=== PATIENT | male | born 1980 | race Caucasian/White ===

== ENCOUNTER 2022-03-09 17:22 | Emergency (ER) | payer SELFPAY | END 2022-03-09 23:27 | disposition home or self-care (01) | LOC: CSHERS 17:22 | DX: T40.411A Poisoning by fentanyl or fentanyl analogs, accidental (unintentional), initial encounter (principal); T40.1X1A Poisoning by heroin, accidental (unintentional), initial encounter; J69.0 Pneumonitis due to inhalation of food and vomit; F17.200 Nicotine dependence, unspecified, uncomplicated | CPT/HCPCS: 71045; 93005 ==

== ENCOUNTER 2022-10-08 22:26 | Emergency (ER) | payer SELFPAY | END 2022-10-09 00:22 | disposition home or self-care (01) | LOC: CSHERS 22:26 | DX: T40.411A Poisoning by fentanyl or fentanyl analogs, accidental (unintentional), initial encounter (principal); F17.210 Nicotine dependence, cigarettes, uncomplicated | CPT/HCPCS: 93005; 99284 ==

== ENCOUNTER 2023-09-21 08:36 | Outpatient (CLI) | payer BC, OTHER | END 2023-09-21 08:37 | disposition home or self-care (01) | LOC: CSHWCC 08:36 | PROVIDERS: ATTEND Preventive Medicine Undersea and Hyperbaric Medicine | DX: S41.102A Unspecified open wound of left upper arm, initial encounter (principal); M65.022 Abscess of tendon sheath, left upper arm | CPT/HCPCS: 99214; G0463 ==

== ENCOUNTER 2023-09-25 09:44 | Outpatient (CLI) | payer BC, OTHER | END 2023-09-25 09:45 | disposition home or self-care (01) | LOC: CSHWCC 09:44 | PROVIDERS: ATTEND Preventive Medicine Undersea and Hyperbaric Medicine | DX: S41.102D Unspecified open wound of left upper arm, subsequent encounter (principal); M65.022 Abscess of tendon sheath, left upper arm | CPT/HCPCS: 99213; G0463 ==

== ENCOUNTER 2023-10-12 15:15 | Outpatient (CLI) | payer BC, OTHER | END 2023-10-12 15:16 | disposition home or self-care (01) | LOC: CSHWCC 15:15 | PROVIDERS: ATTEND Physician Assistant | DX: S41.102D Unspecified open wound of left upper arm, subsequent encounter (principal); M65.022 Abscess of tendon sheath, left upper arm | CPT/HCPCS: 97597 ==